=== PATIENT | male | born 1950 | race Caucasian/White ===

== ENCOUNTER → 2020-11-01 | Outpatient (CLI) | payer MEDICARE, BC, OTHER | LOC: M PLAIMG 10:12 | DX: R91.8 Other nonspecific abnormal finding of lung field (principal) ==

== ENCOUNTER → 2020-11-14 | Outpatient (REF) | payer MEDICARE, BC, OTHER | LOC: M LAB REF 17:18 | PROVIDERS: ATTEND Otolaryngology | DX: C44.219 Basal cell carcinoma of skin of left ear and external auricular canal (principal) ==

== ENCOUNTER → 2020-12-13 | Outpatient (CLI) | payer MEDICARE, BC, OTHER ==
--- NOTE | 2020-12-23 17:40 | SLEEPCENT ---
DATE: 12/13/2020 ORDERED BY: JUAN Aquino Nocturnal polysomnography was performed for evaluation of sleep physiology. Six hours and 1 minute of data were reviewed. There were 216 minutes of sleep identified. Sleep latency was normal at 43 minutes. REM latency was short at 22.5 minutes. Sleep architecture was fairly well preserved with 3 REM cycles noted. Overall sleep efficiency was 60.7% due to wake after sleep onset. The electrocardiogram showed atrial fibrillation with a well controlled ventricular response rate of 66 beats per minute on average. EEG showed normal waveforms for wake and sleep. There were 93 respiratory events identified of 10 seconds in duration or greater for an apnea-hypopnea index of 25.8. The events were primarily obstructive, not exclusive to sleep stage nor body posture. Arousals from respiratory events occurred 3.9 times per hour, and oxygen desaturations were seen into the 80s. There was significant limb activity but arousals from limb events occurred only 2.5 times per hour. IMPRESSIONS: Moderate obstructive sleep apnea syndrome (G47.33). Apnea-hypopnea index 25.8. RECOMMENDATION: The patient should be encouraged to return to [facility] for pressure [facility]. In the interim, alcohol and sedative avoidance should be practiced and caution exercised during the operation of motor vehicles. cc: Ulisses Harman MD
== END ==
LOC: M SLEEP 20:00
PROVIDERS: ATTEND Nurse Practitioner Family
DX: G47.33 Obstructive sleep apnea (adult) (pediatric) (principal)

== ENCOUNTER 2021-11-14 09:51 | Emergency (ER) | payer MEDICARE, BC, OTHER ==
[~2021-11-14] VITALS: Ht 190.5 cm; Wt 151.6 kg
[2021-11-14 09:53] VITALS: BP 154/86
[2021-11-14] MEDS ORDERED: JANT5TAB PO (10:27)
[2021-11-14] MEDS ORDERED: ALLO100T PO (10:27)
[2021-11-14] MEDS ORDERED: VENTAER INH (10:27)
[2021-11-14] MEDS ORDERED: AZEL0.055 NARES (10:27)
[2021-11-14] MEDS ORDERED: METO100T5 PO (10:27)
[2021-11-14] MEDS ORDERED: ANOR1AER PO (10:27)
[2021-11-14] MEDS ORDERED: FURO40TA2 PO (10:27)
[2021-11-14] MEDS ORDERED: ATOR40TA75 PO (10:27)
== END 2021-11-14 11:36 | disposition home or self-care (01) ==
LOC: M ED 09:51
DX: S00.03XA Contusion of scalp, initial encounter (principal); W18.39XA Other fall on same level, initial encounter; Y92.89 Other specified places as the place of occurrence of the external cause; I10 Essential (primary) hypertension; E78.9 Disorder of lipoprotein metabolism, unspecified; I48.91 Unspecified atrial fibrillation; Z79.899 Other long term (current) drug therapy; Z79.01 Long term (current) use of anticoagulants

== ENCOUNTER → 2022-01-06 | Outpatient (CLI) | payer MEDICARE, BC, OTHER ==
[~2022-01-06] MED LIST: ALLO100T PO; ANOR1AER PO; ATOR40TA75 PO; AZEL0.055 NARES; FURO40TA2 PO; JANT5TAB PO; METO100T5 PO; VENTAER INH
== END ==
LOC: M PLAIMG 10:48
DX: R91.1 Solitary pulmonary nodule (principal)